=== PATIENT | male | born 1985 | race Caucasian/White ===

== ENCOUNTER 2019-03-06 02:54 | Emergency (ER) | payer MEDICAID ==
[~2019-03-06] VITALS: Ht 170.2 cm; Wt 65.8 kg
[2019-03-06 02:57] VITALS: BP 158/86
--- NOTE | 2019-03-06 02:57 | NUR ---
34 Y/O M BIB [facility]. PT WITHDRAWING FROM HEROIN PER PD. LAST HERION USE YESTERDAY. 02/21 GENERALIZED BODY PAIN. NO OTHER COMPLAINTS AT THIS TIME. NKA / DENIES PMH
--- NOTE | 2019-03-06 03:28 | NUR ---
PATIENT BIB [facility]. PATIENT EXAMINED BY DR. LINDA. PATIENT MEDICALLY CLEARED AND RELEASED IN CUSTODY IN STABLE CONDITION. ORIGINAL PRE-BOOK FORM GIVEN TO OFFICER YANIV.
== END 2019-03-06 03:28 ==
LOC: MED 02:54
DX: F15.23 Other stimulant dependence with withdrawal (principal); Z00.00 Encounter for general adult medical examination without abnormal findings
CPT/HCPCS: 99283